=== PATIENT | male | born 1950 | race Caucasian/White ===

== ENCOUNTER → 2016-07-25 | Outpatient (CLI) | payer MEDICARE | END | disposition home or self-care (01) | LOC: RAD 11:05 | DX: M16.0 Bilateral primary osteoarthritis of hip (principal); M17.0 Bilateral primary osteoarthritis of knee; G89.29 Other chronic pain; M53.3 Sacrococcygeal disorders, not elsewhere classified; Z96.652 Presence of left artificial knee joint ==

== ENCOUNTER 2019-04-04 15:26 | Inpatient (IN) | payer OTHER, MEDICARE ==
[~2019-04-04] VITALS: Ht 187.9 cm; Wt 92.6 kg
[2019-04-04] VITALS: BP 121/76
[2019-04-04 15:33] VITALS: BP 80/60
[2019-04-04 16:17] VITALS: BP 114/75
[2019-04-04 16:25] LABS: BASO % 0.2 % (0.0-1.0); EOS % 0.1 % (1.0-4.0); HEMATOCRIT 39.8 % (42.0-52.0); HEMOGLOBIN 12.7 g/dl (14.0-18.0); LYMPH # 0.7 10*3/uL (1.3-4.4); LYMPH % 4.9 % (27.0-41.0); MEAN CELL VOLUME 90.9 fl (80.0-94.0); MEAN CORPUSCULAR HGB CONC 31.9 g/dl (33.0-37.0); MEAN PLATELET VOLUME 10.1 fl (9.6-12.3); MONO # 0.9 10*3/uL (0.1-1.0); MONO % 6.4 % (3.0-9.0); NEUT # 12.2 10*3/uL (2.3-7.9); NEUT % 88.1 % (47.0-73.0); PLATELET COUNT AUTOMATED 334 10*3/uL (130-400); RED BLOOD COUNT 4.38 10*6/uL (4.50-5.90); RED CELL DISTRI WIDTH 17.5 % (0-14.5); WHITE BLOOD COUNT 13.8 10*3/uL (4.8-10.8)
[2019-04-04 16:35] LABS: ACT PARTIAL THROMBO TIME 33.3 SECONDS (20.0-32.1); INTERNATIONAL NORM RATIO 1.3 (2.0-3.5)
[2019-04-04 16:45] LABS: ALBUMIN 2.3 gm/dl (3.1-4.5); BUN 19 mg/dl (7-24); CHLORIDE 102 mmol/L (98-107); CREATININE 0.91 mg/dL (0.70-1.30); POTASSIUM 3.6 mmol/L (3.5-5.1); SGOT/AST 163 IU/L (3-35); SGPT/ALT 77 U/L (12-78); SODIUM 137 mmol/L (136-145); TOTAL PROTEIN 6.4 gm/dL (6.4-8.2)
--- NOTE | 2019-04-04 16:48 | NUR ---
DR LAM AWARE OF PT'S CRITICAL LACTIC ACID OF 2.5
[2019-04-04 16:55] LABS: ALKALINE PHOSPHATASE 1433 U/L (45-117); TROPONIN I < 0.015 ng/ml (<0.045)
[2019-04-04 18:41] VITALS: BP 94/44
--- NOTE | 2019-04-04 19:02 | NUR ---
DR CHO ON THE FLOOR COVERING FOR DR HIGUERA. AWARE OF CONSULT. STATES HE WILL SEE THE PATIENT TOMORROW. NO ORDERS TAKEN
[2019-04-04 20:05] VITALS: BP 115/68
[2019-04-04 20:05] LABS: BILIRUBIN NEGATIVE (NEGATIVE); BLOOD NEGATIVE (NEGATIVE); CLARITY CLEAR (CLEAR); COLOR YELLOW (YELLOW); GLUCOSE NEGATIVE (NEGATIVE); KETONE NEGATIVE (NEGATIVE); LEUKO ESTERASE NEGATIVE (NEGATIVE); NITRITE NEGATIVE (NEGATIVE); PH 5.5 (5.0-9.0)
--- NOTE | 2019-04-04 20:05 | NUR ---
A 68, admitted to , under the services of TONY Garcia DO with a diagnosis of EDEMA. Chief complaint is EDEMA. Patient arrived via stretcher from ER. Monitor applied. Initial assessment completed. Vital signs taken and recorded. TONY GARCIA DO notified of admission to the unit. Orders received. See assessment for past medical history, medications and allergies. Patient and/or family oriented to unit. [facility] visitation policy reviewed. Clothing/patient valuable form completed. OLGA NOLAN
[2019-04-04] MEDS ORDERED: XARE20MG PO (20:20)
[2019-04-04] MEDS ORDERED: LISINOPRIL20 MG PO (20:20)
[2019-04-04] MEDS ORDERED: LOPRESSOR25 MG PO (20:21)
[2019-04-04] MEDS ORDERED: ULTRAM50 MG PO (20:22)
[2019-04-04] MEDS ORDERED: NEURONTIN300 MG PO (20:22)
[2019-04-04] MEDS ORDERED: ATORVASTATIN CA10 M1 PO (20:23)
--- NOTE | 2019-04-04 20:23 | NUR ---
MED REC COMPLETED WITH LIST FROM HOME
--- NOTE | 2019-04-04 20:49 | NUR ---
CALLED DR CHO'S ANSWERING SERVICE REGARDING PATIENT'S HEART RATE 170'S AFIB
--- NOTE | 2019-04-04 20:52 | NUR ---
SPOKE WITH DR CHO REGARDING HEART RATE BEING 130-180'S. STATES TO START CARDIZEM GTT AT 5, TITRATE TO KEEP HEART RATE UNDER 110. ALSO STATES TO START XARELTO TONIGHT
--- NOTE | 2019-04-04 21:38 | NUR ---
CARDIZEM DRIP INCREASED TO 10 FOR HEART RATE IN THE 140'S
[2019-04-04 22:00] VITALS: BP 106/72
--- NOTE | 2019-04-04 23:13 | NUR ---
DISCUSSED WITH DR SEGUNDO THAT PATIENT IS REQUESTING HOME NEURONTIN AND ULTRAM. STATES HE WILL CALL ME RIGHT BACK
--- NOTE | 2019-04-04 23:19 | NUR ---
DR SEGUNDO CALLED BACK AND STATES TO ORDER THE PATIENT'S HOME ULTRAM, BUT NOT THE NEURONTIN.
[2019-04-05] VITALS (9 sets, daily range): BP systolic 98–121; BP diastolic 62–77
--- NOTE | 2019-04-05 00:18 | NUR ---
PATIENT MEDICATION WITH SCHEDULED ULTRAM FOR COMPLAINTS OF BACK AND NECK PAIN RATED 9/10 ON 0/10 SCALE. WILL MONITOR FOR EFFECTIVENESS.
--- NOTE | 2019-04-05 02:14 | NUR ---
CARDIZEM DRIP TURNED DOWN TO 5 FOR HEART RATE 80'S-90'S
--- NOTE | 2019-04-05 04:06 | NUR ---
DR CHO AWARE OF BLOOD PRESSURE 100/70. STATES THAT IS OK AT THIS TIME
[2019-04-05 07:12] LABS: CHLORIDE 101 mmol/L (98-107); POTASSIUM 3.8 mmol/L (3.5-5.1); SODIUM 137 mmol/L (136-145)
[2019-04-05 07:13] LABS: BASO % 0.2 % (0.0-1.0); EOS # 0.1 10*3/uL (0.0-0.4); EOS % 0.5 % (1.0-4.0); HEMATOCRIT 40.2 % (42.0-52.0); HEMOGLOBIN 12.8 g/dl (14.0-18.0); LYMPH # 0.9 10*3/uL (1.3-4.4); LYMPH % 7.1 % (27.0-41.0); MEAN CORPUSCULAR HGB CONC 31.8 g/dl (33.0-37.0); MEAN PLATELET VOLUME 10.4 fl (9.6-12.3); MONO # 0.9 10*3/uL (0.1-1.0); MONO % 7.2 % (3.0-9.0); NEUT # 10.9 10*3/uL (2.3-7.9); NEUT % 84.5 % (47.0-73.0); PLATELET COUNT AUTOMATED 305 10*3/uL (130-400); RED BLOOD COUNT 4.42 10*6/uL (4.50-5.90); RED CELL DISTRI WIDTH 17.7 % (0-14.5); WHITE BLOOD COUNT 12.9 10*3/uL (4.8-10.8)
[2019-04-05 07:40] LABS: ALBUMIN 2.3 gm/dl (3.1-4.5); BUN 18 mg/dl (7-24); CHOLESTEROL 143 mg/dL (<200); CREATININE 0.86 mg/dL (0.70-1.30); FREE T4 1.27 ng/dl (0.76-1.46); HDL CHOLESTEROL 29 mg/dl (40-60); LDL CHOLESTEROL 95 mg/dL (9-159); PHOSPHOROUS 2.9 mg/dL (2.5-4.9); SGOT/AST 183 IU/L (3-35); SGPT/ALT 82 U/L (12-78); TOTAL PROTEIN 6.5 gm/dL (6.4-8.2); TRIGLYCERIDES 93 mg/dl (<150); VLDL CHOLESTEROL 19 mg/dL (6-40)
[2019-04-05 07:43] LABS: ALKALINE PHOSPHATASE 1477 U/L (45-117)
[2019-04-05 07:48] LABS: INTERNATIONAL NORM RATIO 1.4 (2.0-3.5)
[2019-04-05 08:48] LABS: VITAMIN D, 25-HYDROXY 25.7 ng/mL (30-100)
--- NOTE | 2019-04-05 09:00 | NUR ---
Stick Roller in to talk to patient. Patient states lives at home with alone. There are few steps in the home. Physician: [facility] Home health services: none Patient's level of ADLs: INDEPENDENT Patient has working utilities: all working DME: cane Follow-up physician's appointment after d/c: will be made by hospitalist nurse director upon discharge Does patient want to access PORTAL?: no Discharge plan discussed with patient, he lives at home alone, he states he is independent in adls and ambulation, has a cane if needed. he doesn't drive but his friends and family take him to doctors appointments and the grocery store, he stated he would be returning home when medically stable, discussed with him [facility] and educated him on their services, he declines any home services at this time. RAQUEL LIVINGSTON
--- NOTE | 2019-04-05 14:31 | NUR ---
Spoke with regarding NPO status needed for US. See new orders.
--- NOTE | 2019-04-05 14:51 | NUR ---
Notified of patients blood pressure and heart rate. See new orders.
--- NOTE | 2019-04-05 16:00 | NUR ---
Patient sitting up to side of bed, denies any chest pain at this time. Patient hoping to go home after testing tomorrow. Patient made aware of npo at midnight. Patient left with call light in reach.
--- NOTE | 2019-04-05 16:29 | NUR ---
Spoke with regarding dosage change for Neurotin. Awaiting new orders.
--- NOTE | 2019-04-05 19:58 | NUR ---
PATIENT RESTING IN BED WATCHING TV. DENIES NEEDS AT THIS TIME. BED IN LOWEST POSITION, CALL LIGHT IN REACH
[2019-04-06] VITALS: BP 98/73
--- NOTE | 2019-04-06 02:59 | NUR ---
24 HR chart check completed.
[2019-04-06 08:03] LABS: BASO % 0.2 % (0.0-1.0); EOS % 0.2 % (1.0-4.0); HEMATOCRIT 41.9 % (42.0-52.0); HEMOGLOBIN 13.1 g/dl (14.0-18.0); LYMPH # 0.7 10*3/uL (1.3-4.4); LYMPH % 5.5 % (27.0-41.0); MEAN CELL VOLUME 90.3 fl (80.0-94.0); MEAN CORPUSCULAR HGB 28.2 pg (27.0-31.0); MEAN CORPUSCULAR HGB CONC 31.3 g/dl (33.0-37.0); MEAN PLATELET VOLUME 9.9 fl (9.6-12.3); MONO # 0.8 10*3/uL (0.1-1.0); MONO % 5.8 % (3.0-9.0); NEUT # 11.6 10*3/uL (2.3-7.9); NEUT % 87.9 % (47.0-73.0); PLATELET COUNT AUTOMATED 281 10*3/uL (130-400); RED BLOOD COUNT 4.64 10*6/uL (4.50-5.90); RED CELL DISTRI WIDTH 17.6 % (0-14.5); WHITE BLOOD COUNT 13.1 10*3/uL (4.8-10.8)
[2019-04-06 08:20] LABS: ALBUMIN 2.5 gm/dl (3.1-4.5); BUN 16 mg/dl (7-24); CHLORIDE 99 mmol/L (98-107); CREATININE 0.79 mg/dL (0.70-1.30); POTASSIUM 3.4 mmol/L (3.5-5.1); SGOT/AST 184 IU/L (3-35); SGPT/ALT 88 U/L (12-78); SODIUM 137 mmol/L (136-145); TOTAL PROTEIN 7.1 gm/dL (6.4-8.2)
[2019-04-06 08:33] LABS: ALKALINE PHOSPHATASE 1587 U/L (45-117)
--- NOTE | 2019-04-06 09:00 | NUR ---
case management visits with patient, she states he will return home when medically stable and denies any home needs
[2019-04-06 12:00] VITALS: BP 102/71
[2019-04-06 16:00] VITALS: BP 105/70
--- NOTE | 2019-04-06 19:31 | NUR ---
PATIENT AMBULATING AROUND ROOM. DENIES PAIN AT THIS TIME. BED IN LOWEST POSITION, CALL LIGHT IN REACH
[2019-04-06 20:00] VITALS: BP 111/69
--- NOTE | 2019-04-06 20:11 | NUR ---
MEDICATED WITH PRN TYLENOL FOR C/O PAIN. WILL MONITOR
--- NOTE | 2019-04-06 23:10 | NUR ---
DR LEUNG AWARE OF LOW BLOOD PRESSURE. STATES TO CALL CARDIOLOGY
--- NOTE | 2019-04-06 23:15 | NUR ---
PAGED DR CHO AT THIS TIME, REQUESTED CALL BACK
--- NOTE | 2019-04-06 23:18 | NUR ---
PATIENT DENIES DIZZINESS OR LIGHT HEADEDNESS AT THIS TIME
--- NOTE | 2019-04-06 23:23 | NUR ---
SPOKE WITH DR CHO REGARDING PATIENT'S BLOOD PRESSURE BEING 78/46. MADE HIM AWARE OF PATIENT'S BILATERAL LEG EDEMA AND GETTING IV LASIX BID. HE STATES TO GIVE THE PATIENT A 500CC BOLUS OF NORMAL SALINE AND MAINTENANCE FLUIDS AT 75CC/HR
[2019-04-07] VITALS (7 sets, daily range): BP systolic 78–118; BP diastolic 46–73
--- NOTE | 2019-04-07 00:26 | NUR ---
DR LEUNG AT NURSES STATION AND UPDATED ON PATIENT'S CONDITION AND ORDERS FROM DR CHO. STATES TO CALL HIM BACK BEFORE CALLING DR CHO TO UPDATE HIM ON NEXT BLOOD PRESSURE
--- NOTE | 2019-04-07 01:40 | NUR ---
24 HR chart check completed.
--- NOTE | 2019-04-07 02:03 | NUR ---
DR LEUNG AWARE OF PATIENT'S BLOOD PRESSURE. STATES TO CONTINUE THE 500CC BAG AT 70 CC/HR AND DC THE MAINTENANCE FLUIDS
[2019-04-07 06:44] LABS: BUN 13 mg/dl (7-24); CHLORIDE 96 mmol/L (98-107); CREATININE 0.75 mg/dL (0.70-1.30); POTASSIUM 4.1 mmol/L (3.5-5.1); SODIUM 136 mmol/L (136-145)
--- NOTE | 2019-04-07 09:00 | NUR ---
case management visits with patient, he denies any needs at this time
--- NOTE | 2019-04-07 20:01 | NUR ---
MEDICATED WITH TYLENOL FOR C/O GENERALIZED DISCOMFORT.
--- NOTE | 2019-04-07 23:19 | NUR ---
MEDICATED WITH NORCO FOR C/O RIB PAIN DUE TO PT. STATING THAT HE HAS ARTHRITIS.
[2019-04-08] VITALS: BP 100/61
--- NOTE | 2019-04-08 02:00 | NUR ---
RESTING IN BED WITH EYES CLOSED; MEDICATION GIVEN EARLIER APPARENTLY EFFECTIVE.
--- NOTE | 2019-04-08 05:21 | NUR ---
MEDICATED WITH NORCO FOR C/O PAIN.
[2019-04-08 06:30] LABS: BASO % 0.2 % (0.0-1.0); EOS % 0.3 % (1.0-4.0); HEMATOCRIT 38.8 % (42.0-52.0); HEMOGLOBIN 12.5 g/dl (14.0-18.0); LYMPH # 0.6 10*3/uL (1.3-4.4); LYMPH % 4.7 % (27.0-41.0); MEAN CELL VOLUME 89.6 fl (80.0-94.0); MEAN CORPUSCULAR HGB 28.9 pg (27.0-31.0); MEAN CORPUSCULAR HGB CONC 32.2 g/dl (33.0-37.0); MEAN PLATELET VOLUME 10.1 fl (9.6-12.3); MONO # 0.9 10*3/uL (0.1-1.0); MONO % 7.1 % (3.0-9.0); NEUT # 11.2 10*3/uL (2.3-7.9); NEUT % 87.2 % (47.0-73.0); PLATELET COUNT AUTOMATED 219 10*3/uL (130-400); RED BLOOD COUNT 4.33 10*6/uL (4.50-5.90); RED CELL DISTRI WIDTH 17.5 % (0-14.5); WHITE BLOOD COUNT 12.8 10*3/uL (4.8-10.8)
[2019-04-08 07:01] LABS: ALBUMIN 2.3 gm/dl (3.1-4.5); BUN 15 mg/dl (7-24); CHLORIDE 95 mmol/L (98-107); CREATININE 0.68 mg/dL (0.70-1.30); POTASSIUM 3.2 mmol/L (3.5-5.1); SGOT/AST 393 IU/L (3-35); SGPT/ALT 118 U/L (12-78); SODIUM 134 mmol/L (136-145); TOTAL PROTEIN 6.4 gm/dL (6.4-8.2)
[2019-04-08 07:51] LABS: ALKALINE PHOSPHATASE 1629 U/L (45-117)
--- NOTE | 2019-04-08 09:00 | NUR ---
case management visits with patient, patient stated he was feeling better but felt weak, discussed with him a short term usp for 5 days of physical therapy and occupational therapy and 24 hour care. he declined, he stated he was returning home and was able to care for himself, he also stated he had friends and family that would help him if needed, also discussed with him [facility] and educated on their services, he didn't feel he needed any home services at this time, case management will follow
--- NOTE | 2019-04-08 10:45 | NUR ---
Occupational Therapy evaluation completed on 4 with full eval to follow. Precautions include life vest,poor activity tolerance,IV UE,moderate BUE edema, moderate complexity level [id number]. Recommend OT per pOC and return home alone w/ home health SN,OT, PT. Thank you. Sandra Damon OTR/l
--- NOTE | 2019-04-08 10:45 | NUR ---
PHYSICAL THERAPY Tommy completed moderate level complexity pt would like to go home recomend home with HH use of FWW. PT to work on transfers,strenght,amb/balance Katy Hardy PT
--- NOTE | 2019-04-08 10:45 | NUR ---
Occupational Therapy evaluation completed on 4 with full eval to follow. Precautions include cardiac precautions,life vest, ejection fract 30-35%,limited activity tolerance, BLE moderate edema,moderate complexity level [id number]. Recommend OT per POC and home w/ home health SN, OT,PT. Thank you. Sandra Damon OTR/l
--- NOTE | 2019-04-08 11:26 | NUR ---
case management received a message that patient was agreeable to going to a short term prison, talked with patient, he stated he did not want to go to a skilled facility, that he would be returning home and was able to care for himself,case management will follow
--- NOTE | 2019-04-08 11:55 | NUR ---
TYLENOL GIVEN FOR C/O GENERALIZED DISCOMFORT. WILL MONITOR.
[2019-04-08 12:00] VITALS: BP 110/60
--- NOTE | 2019-04-08 13:00 | NUR ---
TYLENOL EFFECTIVE PER PT.
[2019-04-08 16:00] VITALS: BP 110/62
[2019-04-08 20:00] VITALS: BP 120/78
--- NOTE | 2019-04-08 20:00 | NUR ---
RESTING IN BED. RESPIRATIONS EASY. LUNGS DIMINISHED, CLEAR. PULSE OX 97% RA. +3 PITTING BLE EDEMA. CALL LIGHT WITHIN REACH
--- NOTE | 2019-04-08 20:07 | NUR ---
24 HR chart check completed.
--- NOTE | 2019-04-08 20:18 | NUR ---
MEDICATED WITH TYLENOL PER PRN ORDER FOR COMPLAINTS OF NECK, BACK AND RIB PAIN RATING AN 8. WILL MONITOR FOR EFFECTIVENESS
--- NOTE | 2019-04-08 22:00 | NUR ---
MEDS APPEAR EFFECTIVE. SLEEPING. RESPIRATIONS EASY. CALL LIGHT WITHIN REACH
[2019-04-09] VITALS: BP 106/72
--- NOTE | 2019-04-09 | NUR ---
SLEEPING. NO DISTRESS NOTED. RESPIRATIONS EASY. VSS. CALL LIGHT WITHIN REACH.
--- NOTE | 2019-04-09 06:00 | NUR ---
SLEPT THROUGHOUT NIGHT WITH NO DISTRESS NOTED. RESPIRATIONS EASY. CALL LIGHT WITHIN REACH. NO VOICED COMPLAINTS THIS SHIFT
[2019-04-09 06:55] LABS: BASO % 0.2 % (0.0-1.0); EOS % 0.2 % (1.0-4.0); HEMOGLOBIN 12.6 g/dl (14.0-18.0); LYMPH # 0.6 10*3/uL (1.3-4.4); LYMPH % 4.8 % (27.0-41.0); MEAN CELL VOLUME 90.1 fl (80.0-94.0); MEAN CORPUSCULAR HGB 29.1 pg (27.0-31.0); MEAN CORPUSCULAR HGB CONC 32.3 g/dl (33.0-37.0); MEAN PLATELET VOLUME 10.6 fl (9.6-12.3); MONO # 0.9 10*3/uL (0.1-1.0); MONO % 6.8 % (3.0-9.0); NEUT # 11.5 10*3/uL (2.3-7.9); NEUT % 87.4 % (47.0-73.0); PLATELET COUNT AUTOMATED 216 10*3/uL (130-400); RED BLOOD COUNT 4.33 10*6/uL (4.50-5.90); RED CELL DISTRI WIDTH 17.9 % (0-14.5); WHITE BLOOD COUNT 13.2 10*3/uL (4.8-10.8)
[2019-04-09 07:18] LABS: ALBUMIN 2.1 gm/dl (3.1-4.5); BUN 16 mg/dl (7-24); CHLORIDE 96 mmol/L (98-107); CREATININE 0.67 mg/dL (0.70-1.30); POTASSIUM 3.9 mmol/L (3.5-5.1); SGOT/AST 215 IU/L (3-35); SGPT/ALT 92 U/L (12-78); SODIUM 131 mmol/L (136-145); TOTAL PROTEIN 6.4 gm/dL (6.4-8.2)
[2019-04-09 07:32] LABS: ALKALINE PHOSPHATASE 1497 U/L (45-117)
[2019-04-09 08:00] VITALS: BP 100/64
--- NOTE | 2019-04-09 08:00 | NUR ---
Patient resting quietly with no c/o discomfort. Respirations easy and regular. Vital signs stable. No overt distress. TEODORO ALDRIDGE
--- NOTE | 2019-04-09 09:00 | NUR ---
case management visits with patient, he will return home when medically stable and denies any home needs, case management will follow
--- NOTE | 2019-04-09 09:26 | NUR ---
PHYSICAL THERAPY Patient seen this am 1:1 for therapy visit and was sitting up on EOB upon therapist arrival. Patient identified by name / and reports B knee stiffness secondary to history of Arthritis. Patient presents with Life vest monitoring, HR 103 bpm at rest prior to transfering sit to stand SBA x 1. Patient ambulates CGA, 100'x 1, without AD, demonstrating slow kathy, decreased stride / B arm swing. Patient also tolerated eyes open / closed without LOB and single leg stance, R side 2 seconds, L side 1 second prior to LOB. Patient returned to EOB sit with only mild fatigue, stating his kness felt a little better since walking. Patient remained EOB with call light, tray table and telephone. Will continue per POC as tolerated, total treatment time 17 minutes. Rodrick Neal, SURGICAL ASSISTANT
[2019-04-09 13:00] VITALS: BP 101/55
--- NOTE | 2019-04-09 15:14 | NUR ---
OCCUPATIONAL THERAPY CO-SIGN I approve of the Occupational Therapy notes written above. GRETTA CORTEZ OTR/Jamil
--- NOTE | 2019-04-09 15:19 | NUR ---
PHYSICAL THERAPY CO-SIGN I approve of the Physical Therapy notes written above. Katy Hardy PT
[2019-04-09 16:00] VITALS: BP 107/76
[2019-04-09 20:00] VITALS: BP 98/54
--- NOTE | 2019-04-09 22:00 | NUR ---
PATIENT SITTING UP IN CHAIR. RESTING COMFORTABLY. DENIES NEED FOR PAIN DEVAN AT PRESENT.
[2019-04-10] VITALS: BP 90/60
--- NOTE | 2019-04-10 02:05 | NUR ---
Patient resting quietly with no c/o discomfort. Respirations easy and regular. Vital signs stable. No overt distress. LYNN MARTINEZ
[2019-04-10 07:50] LABS: BASO % 0.1 % (0.0-1.0); EOS % 0.2 % (1.0-4.0); HEMATOCRIT 39.1 % (42.0-52.0); HEMOGLOBIN 12.3 g/dl (14.0-18.0); LYMPH # 0.6 10*3/uL (1.3-4.4); LYMPH % 5.2 % (27.0-41.0); MEAN CELL VOLUME 90.7 fl (80.0-94.0); MEAN CORPUSCULAR HGB 28.5 pg (27.0-31.0); MEAN CORPUSCULAR HGB CONC 31.5 g/dl (33.0-37.0); MEAN PLATELET VOLUME 10.6 fl (9.6-12.3); MONO # 0.8 10*3/uL (0.1-1.0); MONO % 6.3 % (3.0-9.0); NEUT # 10.6 10*3/uL (2.3-7.9); NEUT % 87.9 % (47.0-73.0); PLATELET COUNT AUTOMATED 234 10*3/uL (130-400); RED BLOOD COUNT 4.31 10*6/uL (4.50-5.90); RED CELL DISTRI WIDTH 18.3 % (0-14.5)
[2019-04-10 08:04] LABS: BUN 19 mg/dl (7-24); CHLORIDE 91 mmol/L (98-107); CREATININE 0.84 mg/dL (0.70-1.30); SODIUM 132 mmol/L (136-145)
[2019-04-10] MEDS ORDERED: VITAMIN D32000 UNI1 PO (10:42)
[2019-04-10] MEDS ORDERED: LISINOPRIL5 MG PO (10:42)
[2019-04-10] MEDS ORDERED: ALDACTONE25 MG PO (10:42)
[2019-04-10] MEDS ORDERED: LASIX40 MG PO (10:42)
--- NOTE | 2019-04-10 15:13 | NUR ---
[facility] Discharge instructions reviewed with patient/family. Patient receptive and verbalizes understanding. Follow-up care arranged. Written instructions given to patient/family. LARA COOMBS
== END 2019-04-10 15:14 | disposition home or self-care (01) | DRG 291 ==
LOC: ED 15:26 → 4E 17:53 → EDHOLD 17:53 → 4E 18:40
PROVIDERS: Emergency Medicine; Internal Medicine; Student in an Organized Health Care Education/Training Program; ADMIT Family Medicine
DX: I11.0 Hypertensive heart disease with heart failure (principal); E43 Unspecified severe protein-calorie malnutrition; J18.9 Pneumonia, unspecified organism; R65.10 Systemic inflammatory response syndrome (SIRS) of non-infectious origin without acute organ dysfunction; E87.0 Hyperosmolality and hypernatremia; I48.21 Permanent atrial fibrillation; I50.23 Acute on chronic systolic (congestive) heart failure; D64.9 Anemia, unspecified; R73.9 Hyperglycemia, unspecified; R73.03 Prediabetes; E55.9 Vitamin D deficiency, unspecified; M19.90 Unspecified osteoarthritis, unspecified site; E78.5 Hyperlipidemia, unspecified; K86.9 Disease of pancreas, unspecified; K74.60 Unspecified cirrhosis of liver; Z96.652 Presence of left artificial knee joint; I42.8 Other cardiomyopathies; Z87.891 Personal history of nicotine dependence; Z80.3 Family history of malignant neoplasm of breast; Z84.1 Family history of disorders of kidney and ureter; Z79.899 Other long term (current) drug therapy; Z68.27 Body mass index [BMI] 27.0-27.9, adult; Z83.3 Family history of diabetes mellitus

== ENCOUNTER 2019-04-16 13:23 | Inpatient (IN) | payer MEDICARE ==
[~2019-04-16] VITALS: Ht 187.9 cm; Wt 88.6 kg
[~2019-04-16 13:23] MED LIST: ALDACTONE25 MG PO; ATORVASTATIN CA10 M1 PO; LASIX40 MG PO; LISINOPRIL20 MG PO; LISINOPRIL5 MG PO; LOPRESSOR25 MG PO; NEURONTIN300 MG PO; ULTRAM50 MG PO; VITAMIN D32000 UNI1 PO; XARE20MG PO
[2019-04-16 13:27] VITALS: BP 90/56
[2019-04-16 13:46] LABS: HEMATOCRIT 39.4 % (42.0-52.0); HEMOGLOBIN 12.8 g/dl (14.0-18.0); MEAN CELL VOLUME 87.6 fl (80.0-94.0); MEAN CORPUSCULAR HGB 28.4 pg (27.0-31.0); MEAN CORPUSCULAR HGB CONC 32.5 g/dl (33.0-37.0); MEAN PLATELET VOLUME 9.6 fl (9.6-12.3); PLATELET COUNT AUTOMATED 331 10*3/uL (130-400); RED CELL DISTRI WIDTH 18.5 % (0-14.5)
[2019-04-16 14:03] LABS: BUN 26 mg/dl (7-24); CHLORIDE 92 mmol/L (98-107); CREATININE 1.08 mg/dL (0.70-1.30); POTASSIUM 3.8 mmol/L (3.5-5.1); SGOT/AST 176 IU/L (3-35); SGPT/ALT 83 U/L (12-78); SODIUM 131 mmol/L (136-145); TOTAL PROTEIN 6.3 gm/dL (6.4-8.2)
[2019-04-16 14:19] LABS: TOTAL CELLS COUNTED 100 #CELLS
[2019-04-16 14:20] LABS: BURR CELLS FEW; OVALOCYTES FEW; STOMATOCYTE FEW
[2019-04-16 14:21] LABS: PLATELET SUFFICIENCY NORMAL (NORMAL)
[2019-04-16 14:32] LABS: ACT PARTIAL THROMBO TIME 33.7 SECONDS (20.0-32.1); INTERNATIONAL NORM RATIO 1.3 (2.0-3.5)
[2019-04-16 15:00] LABS: ALKALINE PHOSPHATASE 3349 U/L (45-117); TROPONIN I < 0.015 ng/ml (<0.045)
[2019-04-16 15:50] VITALS: BP 93/69
[2019-04-16 16:23] VITALS: BP 94/69
[2019-04-16 17:07] VITALS: BP 96/52
[2019-04-16 20:00] VITALS: BP 130/61
[2019-04-17] VITALS: BP 136/64
[2019-04-17 06:34] LABS: BASO % 0.3 % (0.0-1.0); EOS % 0.4 % (1.0-4.0); HEMATOCRIT 34.1 % (42.0-52.0); HEMOGLOBIN 11.3 g/dl (14.0-18.0); LYMPH # 0.7 10*3/uL (1.3-4.4); LYMPH % 6.2 % (27.0-41.0); MEAN CELL VOLUME 87.2 fl (80.0-94.0); MEAN CORPUSCULAR HGB 28.9 pg (27.0-31.0); MEAN CORPUSCULAR HGB CONC 33.1 g/dl (33.0-37.0); MEAN PLATELET VOLUME 10.1 fl (9.6-12.3); MONO # 0.9 10*3/uL (0.1-1.0); NEUT # 9.6 10*3/uL (2.3-7.9); NEUT % 84.5 % (47.0-73.0); PLATELET COUNT AUTOMATED 292 10*3/uL (130-400); RED BLOOD COUNT 3.91 10*6/uL (4.50-5.90); RED CELL DISTRI WIDTH 18.8 % (0-14.5); WHITE BLOOD COUNT 11.3 10*3/uL (4.8-10.8)
[2019-04-17 06:38] LABS: ALBUMIN 1.8 gm/dl (3.1-4.5); BUN 22 mg/dl (7-24); CHLORIDE 93 mmol/L (98-107); CREATININE 0.94 mg/dL (0.70-1.30); PHOSPHOROUS 3.3 mg/dL (2.5-4.9); POTASSIUM 3.9 mmol/L (3.5-5.1); SGOT/AST 156 IU/L (3-35); SGPT/ALT 73 U/L (12-78); SODIUM 132 mmol/L (136-145); TOTAL PROTEIN 5.7 gm/dL (6.4-8.2)
[2019-04-17 06:40] LABS: INTERNATIONAL NORM RATIO 1.2 (2.0-3.5)
[2019-04-17 06:54] LABS: ALKALINE PHOSPHATASE 2126 U/L (45-117)
[2019-04-17 08:00] VITALS: BP 128/62
[2019-04-17 12:00] VITALS: BP 82/52
[2019-04-17 16:00] VITALS: BP 110/76
[2019-04-17 20:00] VITALS: BP 108/68
[2019-04-18] VITALS: BP 104/66
[2019-04-18 06:06] LABS: ALBUMIN 1.8 gm/dl (3.1-4.5); BUN 24 mg/dl (7-24); CHLORIDE 93 mmol/L (98-107); CREATININE 1.03 mg/dL (0.70-1.30); POTASSIUM 3.5 mmol/L (3.5-5.1); SGOT/AST 146 IU/L (3-35); SGPT/ALT 73 U/L (12-78); SODIUM 130 mmol/L (136-145); TOTAL PROTEIN 5.6 gm/dL (6.4-8.2)
[2019-04-18 06:07] LABS: BASO % 0.2 % (0.0-1.0); EOS # 0.1 10*3/uL (0.0-0.4); EOS % 0.7 % (1.0-4.0); HEMATOCRIT 33.1 % (42.0-52.0); HEMOGLOBIN 10.9 g/dl (14.0-18.0); LYMPH # 0.7 10*3/uL (1.3-4.4); LYMPH % 6.8 % (27.0-41.0); MEAN CELL VOLUME 86.2 fl (80.0-94.0); MEAN CORPUSCULAR HGB 28.4 pg (27.0-31.0); MEAN CORPUSCULAR HGB CONC 32.9 g/dl (33.0-37.0); MEAN PLATELET VOLUME 9.8 fl (9.6-12.3); MONO # 0.8 10*3/uL (0.1-1.0); MONO % 7.2 % (3.0-9.0); NEUT # 9.1 10*3/uL (2.3-7.9); NEUT % 84.6 % (47.0-73.0); PLATELET COUNT AUTOMATED 281 10*3/uL (130-400); RED BLOOD COUNT 3.84 10*6/uL (4.50-5.90); RED CELL DISTRI WIDTH 18.7 % (0-14.5); WHITE BLOOD COUNT 10.8 10*3/uL (4.8-10.8)
[2019-04-18 06:23] LABS: ALKALINE PHOSPHATASE 1880 U/L (45-117)
[2019-04-18 08:00] VITALS: BP 100/60
[2019-04-18 12:00] VITALS: BP 98/50
[2019-04-18 16:00] VITALS: BP 94/55
[2019-04-18 20:00] VITALS: BP 76/64
[2019-04-19] VITALS: BP 86/64
[2019-04-19 07:03] LABS: BASO % 0.3 % (0.0-1.0); EOS # 0.1 10*3/uL (0.0-0.4); EOS % 0.6 % (1.0-4.0); HEMATOCRIT 37.9 % (42.0-52.0); HEMOGLOBIN 12.3 g/dl (14.0-18.0); LYMPH # 0.7 10*3/uL (1.3-4.4); LYMPH % 4.8 % (27.0-41.0); MEAN CELL VOLUME 88.1 fl (80.0-94.0); MEAN CORPUSCULAR HGB 28.6 pg (27.0-31.0); MEAN CORPUSCULAR HGB CONC 32.5 g/dl (33.0-37.0); MEAN PLATELET VOLUME 9.8 fl (9.6-12.3); MONO # 0.7 10*3/uL (0.1-1.0); MONO % 5.1 % (3.0-9.0); NEUT # 12.8 10*3/uL (2.3-7.9); NEUT % 88.6 % (47.0-73.0); PLATELET COUNT AUTOMATED 335 10*3/uL (130-400); RED CELL DISTRI WIDTH 19.3 % (0-14.5); WHITE BLOOD COUNT 14.4 10*3/uL (4.8-10.8)
[2019-04-19 07:39] LABS: ALBUMIN 2.2 gm/dl (3.1-4.5); BUN 20 mg/dl (7-24); CHLORIDE 91 mmol/L (98-107); CREATININE 1.02 mg/dL (0.70-1.30); POTASSIUM 3.3 mmol/L (3.5-5.1); SGOT/AST 185 IU/L (3-35); SGPT/ALT 87 U/L (12-78); SODIUM 130 mmol/L (136-145)
[2019-04-19 07:52] LABS: ALKALINE PHOSPHATASE 2241 U/L (45-117); TOTAL PROTEIN 6.8 gm/dL (6.4-8.2)
[2019-04-19 08:00] VITALS: BP 84/50
[2019-04-19 12:00] VITALS: BP 102/60
[2019-04-19 16:00] VITALS: BP 87/55
[2019-04-19 20:00] VITALS: BP 90/68
[2019-04-20] VITALS (7 sets, daily range): BP systolic 90–116; BP diastolic 58–72
[2019-04-20 06:24] LABS: BASO # 0.1 10*3/uL (0.0-0.1); BASO % 0.4 % (0.0-1.0); EOS # 0.1 10*3/uL (0.0-0.4); EOS % 0.4 % (1.0-4.0); HEMATOCRIT 36.7 % (42.0-52.0); HEMOGLOBIN 11.8 g/dl (14.0-18.0); LYMPH # 0.6 10*3/uL (1.3-4.4); LYMPH % 4.4 % (27.0-41.0); MEAN CELL VOLUME 88.6 fl (80.0-94.0); MEAN CORPUSCULAR HGB 28.5 pg (27.0-31.0); MEAN CORPUSCULAR HGB CONC 32.2 g/dl (33.0-37.0); MEAN PLATELET VOLUME 10.2 fl (9.6-12.3); MONO # 0.8 10*3/uL (0.1-1.0); MONO % 6.2 % (3.0-9.0); NEUT # 11.9 10*3/uL (2.3-7.9); NEUT % 87.9 % (47.0-73.0); PLATELET COUNT AUTOMATED 324 10*3/uL (130-400); RED BLOOD COUNT 4.14 10*6/uL (4.50-5.90); RED CELL DISTRI WIDTH 19.5 % (0-14.5); WHITE BLOOD COUNT 13.5 10*3/uL (4.8-10.8)
[2019-04-20 06:46] LABS: BUN 20 mg/dl (7-24); CHLORIDE 90 mmol/L (98-107); CREATININE 1.05 mg/dL (0.70-1.30); POTASSIUM 3.3 mmol/L (3.5-5.1); SGOT/AST 202 IU/L (3-35); SGPT/ALT 97 U/L (12-78); SODIUM 131 mmol/L (136-145); TOTAL PROTEIN 6.5 gm/dL (6.4-8.2)
[2019-04-20 08:42] LABS: ALKALINE PHOSPHATASE 2724 U/L (45-117)
[2019-04-21] VITALS: BP 108/57
[2019-04-21 07:16] LABS: BUN 20 mg/dl (7-24); CHLORIDE 86 mmol/L (98-107); CREATININE 1.01 mg/dL (0.70-1.30); POTASSIUM 3.5 mmol/L (3.5-5.1); SODIUM 128 mmol/L (136-145)
[2019-04-21 08:00] VITALS: BP 100/71; BP 102/61
[2019-04-21 10:38] VITALS: BP 120/70
[2019-04-21 16:00] VITALS: BP 95/65
[2019-04-21 20:00] VITALS: BP 94/53
[2019-04-22] VITALS: BP 131/92
[2019-04-22 06:26] LABS: BUN 22 mg/dl (7-24); CHLORIDE 82 mmol/L (98-107); CREATININE 1.05 mg/dL (0.70-1.30); SODIUM 128 mmol/L (136-145)
[2019-04-22 06:31] LABS: POTASSIUM 3.9 mmol/L (3.5-5.1)
[2019-04-22 07:58] VITALS: BP 96/52
[2019-04-22 12:00] VITALS: BP 113/63
[2019-04-22 16:00] VITALS: BP 104/64
[2019-04-22 20:00] VITALS: BP 94/60
[2019-04-22 21:00] VITALS: BP 92/50
[2019-04-23] VITALS: BP 96/68
[2019-04-23 06:46] LABS: BASO % 0.3 % (0.0-1.0); EOS % 0.3 % (1.0-4.0); HEMATOCRIT 36.3 % (42.0-52.0); LYMPH # 0.8 10*3/uL (1.3-4.4); MEAN CELL VOLUME 88.5 fl (80.0-94.0); MEAN CORPUSCULAR HGB 29.3 pg (27.0-31.0); MEAN CORPUSCULAR HGB CONC 33.1 g/dl (33.0-37.0); MONO # 0.9 10*3/uL (0.1-1.0); MONO % 6.3 % (3.0-9.0); NEUT # 13.1 10*3/uL (2.3-7.9); NEUT % 87.8 % (47.0-73.0); PLATELET COUNT AUTOMATED 350 10*3/uL (130-400); RED CELL DISTRI WIDTH 19.1 % (0-14.5); WHITE BLOOD COUNT 14.9 10*3/uL (4.8-10.8)
[2019-04-23 08:00] VITALS: BP 100/50; BP 91/59
[2019-04-23 09:58] LABS: BUN 28 mg/dl (7-24); CHLORIDE 77 mmol/L (98-107); CREATININE 1.26 mg/dL (0.70-1.30); POTASSIUM 3.4 mmol/L (3.5-5.1); SODIUM 124 mmol/L (136-145)
[2019-04-23] MEDS ORDERED: LISINOPRIL2.5 MG PO (11:46)
[2019-04-23] MEDS ORDERED: HYDROCODONE-AC1 EAC1 PO (11:46)
[2019-04-23] MEDS ORDERED: TRAMADOL HCL50 MG PO (11:46)
[2019-04-23] MEDS ORDERED: METOPROLOL SUCC50 M1 PO (11:46)
[2019-04-23 12:00] VITALS: BP 102/59
[2019-04-23 16:00] VITALS: BP 107/69
[2019-04-23 20:00] VITALS: BP 138/42
[2019-04-24] VITALS: BP 115/71
[2019-04-24 06:30] LABS: BASO % 0.3 % (0.0-1.0); EOS % 0.3 % (1.0-4.0); HEMATOCRIT 36.3 % (42.0-52.0); LYMPH # 0.8 10*3/uL (1.3-4.4); MEAN CELL VOLUME 88.8 fl (80.0-94.0); MEAN CORPUSCULAR HGB 29.3 pg (27.0-31.0); MEAN CORPUSCULAR HGB CONC 33.1 g/dl (33.0-37.0); MEAN PLATELET VOLUME 10.5 fl (9.6-12.3); MONO # 0.9 10*3/uL (0.1-1.0); MONO % 5.7 % (3.0-9.0); NEUT # 13.9 10*3/uL (2.3-7.9); NEUT % 88.1 % (47.0-73.0); PLATELET COUNT AUTOMATED 352 10*3/uL (130-400); RED BLOOD COUNT 4.09 10*6/uL (4.50-5.90); WHITE BLOOD COUNT 15.8 10*3/uL (4.8-10.8)
[2019-04-24 06:55] LABS: ALBUMIN 2.1 gm/dl (3.1-4.5); BUN 34 mg/dl (7-24); CREATININE 1.35 mg/dL (0.70-1.30); POTASSIUM 3.7 mmol/L (3.5-5.1); SGOT/AST 260 IU/L (3-35); SGPT/ALT 87 U/L (12-78); SODIUM 120 mmol/L (136-145); TOTAL PROTEIN 6.8 gm/dL (6.4-8.2)
[2019-04-24 07:15] LABS: CHLORIDE 73 mmol/L (98-107)
[2019-04-24 07:24] LABS: ALKALINE PHOSPHATASE 2226 U/L (45-117)
[2019-04-24 08:00] VITALS: BP 112/84
[2019-04-24 12:00] VITALS: BP 113/70
[2019-04-24 15:11] LABS: HEMATOCRIT 34.3 % (42.0-52.0); HEMOGLOBIN 11.7 g/dl (14.0-18.0)
[2019-04-24 16:00] VITALS: BP 106/73
[2019-04-24 20:00] VITALS: BP 107/67
[2019-04-25 00:28] VITALS: BP 92/52
[2019-04-25 07:30] LABS: BASO % 0.3 % (0.0-1.0); EOS # 0.1 10*3/uL (0.0-0.4); EOS % 0.3 % (1.0-4.0); HEMATOCRIT 34.9 % (42.0-52.0); HEMOGLOBIN 11.7 g/dl (14.0-18.0); LYMPH # 0.8 10*3/uL (1.3-4.4); LYMPH % 5.3 % (27.0-41.0); MEAN CELL VOLUME 86.4 fl (80.0-94.0); MEAN CORPUSCULAR HGB CONC 33.5 g/dl (33.0-37.0); MEAN PLATELET VOLUME 10.5 fl (9.6-12.3); MONO % 6.7 % (3.0-9.0); NEUT # 13.1 10*3/uL (2.3-7.9); NEUT % 86.8 % (47.0-73.0); PLATELET COUNT AUTOMATED 337 10*3/uL (130-400); RED BLOOD COUNT 4.04 10*6/uL (4.50-5.90); RED CELL DISTRI WIDTH 18.7 % (0-14.5)
[2019-04-25 07:53] LABS: ALBUMIN 1.7 gm/dl (3.1-4.5); POTASSIUM 4.3 mmol/L (3.5-5.1); SGOT/AST 224 IU/L (3-35); SGPT/ALT 71 U/L (12-78); TOTAL PROTEIN 5.7 gm/dL (6.4-8.2)
[2019-04-25 08:00] VITALS: BP 131/52
[2019-04-25 08:21] LABS: ALKALINE PHOSPHATASE 1711 U/L (45-117); BUN 45 mg/dl (7-24); PREALBUMIN < 3 mg/dl (20-40)
[2019-04-25 08:24] LABS: CHLORIDE 74 mmol/L (98-107); SODIUM 118 mmol/L (136-145)
[2019-04-25 12:00] VITALS: BP 138/124
[2019-04-25 14:04] LABS: CREATININE 2.19 mg/dL (0.70-1.30); POTASSIUM 4.9 mmol/L (3.5-5.1)
[2019-04-25 16:00] VITALS: BP 66/40
[2019-04-25 18:48] VITALS: BP 71/57
[2019-04-25 21:00] VITALS: BP 122/79
[2019-04-26] VITALS: BP 78/50
[2019-04-26 06:44] LABS: BASO % 0.1 % (0.0-1.0); EOS % 0.1 % (1.0-4.0); HEMATOCRIT 35.4 % (42.0-52.0); HEMOGLOBIN 12.1 g/dl (14.0-18.0); LYMPH # 0.9 10*3/uL (1.3-4.4); LYMPH % 5.1 % (27.0-41.0); MEAN CELL VOLUME 85.3 fl (80.0-94.0); MEAN CORPUSCULAR HGB 29.2 pg (27.0-31.0); MEAN CORPUSCULAR HGB CONC 34.2 g/dl (33.0-37.0); MEAN PLATELET VOLUME 10.3 fl (9.6-12.3); MONO % 6.2 % (3.0-9.0); NEUT # 14.6 10*3/uL (2.3-7.9); PLATELET COUNT AUTOMATED 396 10*3/uL (130-400); RED BLOOD COUNT 4.15 10*6/uL (4.50-5.90); RED CELL DISTRI WIDTH 19.1 % (0-14.5); WHITE BLOOD COUNT 16.6 10*3/uL (4.8-10.8)
[2019-04-26 07:13] LABS: ALBUMIN 1.7 gm/dl (3.1-4.5); CREATININE 2.99 mg/dL (0.70-1.30); POTASSIUM 5.3 mmol/L (3.5-5.1); TOTAL PROTEIN 5.7 gm/dL (6.4-8.2)
[2019-04-26 08:00] VITALS: BP 76/40
== END 2019-04-26 11:01 | disposition hospice, home (50) | DRG 291 ==
LOC: ED 13:23 → 4E 16:06 → EDHOLD 16:06 → 4E 17:01 → 5E 04-25 21:16
PROVIDERS: Emergency Medicine; Family Medicine; Internal Medicine Cardiovascular Disease; Internal Medicine Nephrology; Registered Nurse; Student in an Organized Health Care Education/Training Program; ADMIT Internal Medicine
DX: I13.0 Hypertensive heart and chronic kidney disease with heart failure and stage 1 through stage 4 chronic kidney disease, or unspecified chronic kidney disease (principal); I50.23 Acute on chronic systolic (congestive) heart failure; N17.0 Acute kidney failure with tubular necrosis; E43 Unspecified severe protein-calorie malnutrition; J18.9 Pneumonia, unspecified organism; E87.1 Hypo-osmolality and hyponatremia; E87.2 Acidosis; R18.8 Other ascites; I48.21 Permanent atrial fibrillation; N18.4 Chronic kidney disease, stage 4 (severe); I42.9 Cardiomyopathy, unspecified; K74.60 Unspecified cirrhosis of liver; Z66 Do not resuscitate; Z51.5 Encounter for palliative care; K76.9 Liver disease, unspecified; D64.9 Anemia, unspecified; E87.8 Other disorders of electrolyte and fluid balance, not elsewhere classified; D37.8 Neoplasm of uncertain behavior of other specified digestive organs; R19.7 Diarrhea, unspecified; E88.09 Other disorders of plasma-protein metabolism, not elsewhere classified; E87.6 Hypokalemia; I95.9 Hypotension, unspecified; Z96.652 Presence of left artificial knee joint; Z68.26 Body mass index [BMI] 26.0-26.9, adult; Z80.3 Family history of malignant neoplasm of breast; Z84.1 Family history of disorders of kidney and ureter; Z79.899 Other long term (current) drug therapy; Z87.891 Personal history of nicotine dependence

== ENCOUNTER 2019-04-26 11:04 | Inpatient (IN) | payer OTHER, MEDICARE ==
[~2019-04-26] VITALS: Ht 188 cm; Wt 88.6 kg
[~2019-04-26 11:04] MED LIST changes: +HYDROCODONE-AC1 EAC1 PO; +LISINOPRIL2.5 MG PO; +METOPROLOL SUCC50 M1 PO; +TRAMADOL HCL50 MG PO
--- NOTE | 2019-04-26 11:12 | NUR ---
Time: 1111 A 68 year old MALE admitted to under services of [facility]. CHARISMA NETTLES
--- NOTE | 2019-04-26 11:38 | NUR ---
PT RESTING IN BED WITH HIS EYES CLOSED. RESPIRATIONS EASY AND REGULAR. NO S/S OF PAIN OR DISCOMFORT. FAMILY AT BEDSIDE. WILL CONTINUE TO MONITOR.
--- NOTE | 2019-04-26 12:06 | NUR ---
PT SHOWING SIGNS OF PAIN/DISCOMFORT. PT MOANING, LOWER EXTREMITIES SHAKING. STUDENT NURSE MEDICATED PATIENT. WILL CHECK EFFECTIVENESS AND CONTINUE TO MONITOR.
--- NOTE | 2019-04-26 12:06 | NUR ---
PT DISPLAYING SIGNS OF AGITATION AND PAIN. RESPONDED TO NAME, MOANING, SHAKING LIMBS. MORPHINE 2MG IVP BY WON CAMPOS, RN AND ATIVAN 1MG IVP BY WON CAMPOS, RN PER PHYSICIANS ORDER. RESP EASY, DEEP, NON LABORED, RATE OF 16. FAMILY AT BEDSIDE. WILL CONTINUE TO ASSESS. RASHEEDA REYESCC
--- NOTE | 2019-04-26 12:30 | NUR ---
MEDICATION EFFECTIVE. PT RESTING QUIETLY WITH EYES CLOSED. RESP EASY, DEEP AND NON LABORED. FAMILY AT BEDSIDE. WILL CONTINUE TO ASSESS. DANUTA REYES
--- NOTE | 2019-04-26 12:36 | NUR ---
PT RESTING IN BED WITH EYES CLOSED. DISPLAYING NO S/S OF PAIN OR DISCOMFORT. FAMILY AT BEDSIDE. WILL CONTINUE TO MONITOR.
[2019-04-26 16:00] VITALS: BP 67/30
--- NOTE | 2019-04-26 16:04 | NUR ---
PT RESTING COMFORTABLY. RESP EASY, NONLABORED. NO S/S OF DISTRESS NOTED. PT FAMILY DECLINES MORPHINE TO BE GIVEN AT THIS TIME. WILL CONTINUE TO MONITOR.
--- NOTE | 2019-04-26 16:43 | NUR ---
PT CONTINUES TO REST COMFORTABLY. FAMILY DENIES NEED FOR MORPHINE AT PRESENT. CALL LIGHT IN REACH. WILL MONITOR
--- NOTE | 2019-04-26 18:16 | NUR ---
PT RESTING COMFORTABLY. RESP EASY AND NONLABORED. NO S/S OF DISTRESS/PAIN NOTED. NOTIFIED PATIENT'S FAMILY MORPHINE CAN BE GIVEN AT ANY TIME. FAMILY STATES "HE DOESN'T NEED IT AT THIS TIME" WILL MONITOR
--- NOTE | 2019-04-26 19:59 | NUR ---
24 HR chart check completed.
--- NOTE | 2019-04-26 20:30 | NUR ---
LETHARGIC. RESPIRATIONS EASY. LUNGS DIMINISHED. PULSE OX 93% 2L. LANDON PATENT. +2 BLE EDEMA WITH CHAIM WRAPS IN PLACE. CALL LIGHT WITHIN REACH.
--- NOTE | 2019-04-26 21:02 | NUR ---
PATIENT MOANING, EYES OPEN. MEDICATED WITH MORPHINE IV PER PRN ORDER. WILL MONITOR
--- NOTE | 2019-04-26 21:15 | NUR ---
CONTINUES TO MOAN, MEDICATED WITH ATIVAN IV PER PRN ORDER. WILL MONITOR
--- NOTE | 2019-04-26 23:00 | NUR ---
MEDS APPEAR EFFECTIIVE. RESTING MORE COMFORTABLY. O2 IN USE. CALL LIGHT WITHIN REACH
[2019-04-27] VITALS: BP 60/37
--- NOTE | 2019-04-27 01:30 | NUR ---
AGAIN MEDICATED WITH MORPHINE IV PER PRN ORDER TO ASSIST WITH COMFORT. WILL MONITOT
--- NOTE | 2019-04-27 03:00 | NUR ---
MEDS APPEAR EFFECTIVE. RESTING MORE COMFORTABLY. FAMILY PRESENT AT BEDSIDE
--- NOTE | 2019-04-27 05:29 | NUR ---
PATIENT BECOMING RESTLESS AND APPEARS UNCOMFORTABLE. REPOSITIONED FOR COMFORT AND MEDICATED WITH MORPHINE IV PER PRN ORDER. WILL MONITOR. BROTHER REMAINS AT BEDSIDE
--- NOTE | 2019-04-27 05:50 | NUR ---
MORPHINE APPEARS MINIMALLY EFFECTIVE. MEDICATED WITH ATIVAN IV PER PRN ORDER. WILL MONITOR
--- NOTE | 2019-04-27 06:30 | NUR ---
CONDITION REMAINS POOR. O2 IN USE. BROTHER REMAINS AT BEDSIDE.
--- NOTE | 2019-04-27 07:43 | NUR ---
Occupational therapy orders will be discharged at this time secondary to patient being on hospice. No further OT indicated at this time. Thank you. Roxy Bautista, OTR/L
--- NOTE | 2019-04-27 07:43 | NUR ---
OCCUPATIONAL THERAPY CO-SIGN I approve of the Occupational Therapy notes written above. Roxy Bautista, OTR/L
[2019-04-27 08:00] VITALS: BP 57/18
--- NOTE | 2019-04-27 08:17 | NUR ---
PT MEDICATED WITH PRN MORPHINE PER PT REQUEST. RESPIRATIONS LABORED AND SHALLOW. WILL CONTINUE TO MONITOR.
--- NOTE | 2019-04-27 10:43 | NUR ---
PHYSICAL THERAPY Pt currently on hospice care will discontinue PT at this time Katy Hardy PT
--- NOTE | 2019-04-27 11:43 | NUR ---
PTS TIME OF 11:22 ON 04/27/2019. PRONOUNCED BY 2 RNS, MYSELF AND RIVKA LEWIS. HOLD FOR CORNEAL DONATION BY [employer]. REFERENCE NUMBER [id number].
--- NOTE | 2019-04-27 11:59 | NUR ---
[facility] notified of .
--- NOTE | 2019-04-27 12:50 | NUR ---
LANDON CAtheter and heplock removed. EYES PREPARED PER INSTRUCTINS FROM [employer]. PT TO TRANFER TO THE [facility].
--- NOTE | 2019-04-27 14:42 | NUR ---
PT IN [facility]. [facility] NOTIFIED.
== END 2019-04-27 18:04 | disposition expired | DRG 374 ==
LOC: 5E 11:04
PROVIDERS: ADMIT Internal Medicine
DX: C78.89 Secondary malignant neoplasm of other digestive organs (principal); E43 Unspecified severe protein-calorie malnutrition; I50.42 Chronic combined systolic (congestive) and diastolic (congestive) heart failure; I48.21 Permanent atrial fibrillation; Z51.5 Encounter for palliative care; R16.0 Hepatomegaly, not elsewhere classified; I11.0 Hypertensive heart disease with heart failure; R00.1 Bradycardia, unspecified; I95.9 Hypotension, unspecified; K74.60 Unspecified cirrhosis of liver; M19.90 Unspecified osteoarthritis, unspecified site; E78.5 Hyperlipidemia, unspecified; Z96.652 Presence of left artificial knee joint; Z87.891 Personal history of nicotine dependence; Z80.3 Family history of malignant neoplasm of breast; Z84.1 Family history of disorders of kidney and ureter; Z68.26 Body mass index [BMI] 26.0-26.9, adult